=== PATIENT | female | born 1990 | race Caucasian/White ===

== ENCOUNTER 2016-04-25 18:04 | Outpatient (CLI) | payer BC ==
[2016-04-25 19:21] LABS: BLOOD, URINE NEGATIVE (NEGATIVE); COLOR,URINE YELLOW (YELLOW); LEUKOCYTE ESTERASE ,URINE TRACE (NEGATIVE); NITRITE,URINE NEGATIVE (NEGATIVE); UROBILINOGEN,URINE 0.2 EU/DL (NORMAL)
[2016-04-25 20:09] LABS: RBC,URINE NONE SEEN /HPF (0-3); WBC,URINE 0-1 /HPF (0-5)
[2016-04-25 20:10] LABS: BACTERIA,URINE TRACE (NEGATIVE)
== END 2016-04-25 20:15 | disposition home or self-care (01) ==
LOC: MC 18:04 → OBOBS 18:04
PROVIDERS: ATTEND Obstetrics & Gynecology
DX: O47.03 False labor before 37 completed weeks of gestation, third trimester (principal); Z3A.36 36 weeks gestation of pregnancy
CPT/HCPCS: 81001

== ENCOUNTER 2016-05-12 05:51 | Inpatient (IN) | payer BC ==
[~2016-05-12] VITALS: Ht 162.6 cm; Wt 76.3 kg
--- OUTSIDE RECORDS SUMMARY | 2016-05-12 05:58 | XMS REPORT | Referral Summary ---
Author Author [facility] Organization [facility] Address Unknown Phone Unavailable Care Team Providers Care Varnish Blender Name Role Phone No PCP, States Primary Care Physician [phone] Encounter Date(s): 01/14/15 - 01/14/15 [facility] [address] [place] [id number] Discharge Diagnosis: Strain of right tibialis anterior muscle Discharge Disposition: 01-Home or Self Care Attending Physician: Deni Smith MD Admitting Physician: Deni Smith MD Vital Signs Most recent to 1 oldest [Reference Range]: Temperature Tympanic 36.2 degC [36.6-38.1 degC] *LOW* (01/14/15 10:40 AM) Peripheral Pulse 72 bpm Rate [60-100 bpm] (01/14/15 10:40 AM) Blood Pressure 94/62 mmHg [90-140/60-90 mmHg] (01/14/15 10:40 AM) Problem List Condition Effective Dates Status Health Status Informant Tobacco Active patient user(Confirmed) Allergies, Adverse Reactions, Alerts Substance Reaction Severity Status Bactrim DS Vomiting Active Medications Abilify 5 mg oral tablet mg tabs, Oral, Daily, 0 Refill(s) Start Date: 01/14/15 Status: Ordered meloxicam 15 mg oral tablet 15 mg 1 tabs, Oral, Daily, # 30 tabs, 0 Refill(s), Pharmacy: [facility] # [id number], 1 tabs Oral Daily,x30 days Start Date: 01/14/15 Stop Date: 02/13/15 Status: Ordered Pristiq Oral, Daily, 0 Refill(s) Start Date: 01/14/15 Status: Ordered Results No data available for this section Immunizations No data available for this section Procedures No data available for this section Social History Social History Type Response Smoking Status Current every day smoker Assessment and Plan Extracted from: Title: Office Visit Note Author: Deni Smith MD Date: 01/14/15 Assessment/Plan Strain of right tibialis anterior muscle Plan: I am going to placeyou on meloxicam. I would recommend using ice for swelling to 3 times a day for 15- 20 minutes. I would recommend changing or boots this something that he applies less pressure to your leg. If you develop heartburn stop the meloxicam. Orders: meloxicam, 15 mg 1 tabs, Oral, Daily, # 30 tabs, 0 Refill(s), Pharmacy : [facility] #[id number], 1 tabs Oral Daily,x30 days
--- OUTSIDE RECORDS SUMMARY | 2016-05-12 05:58 | XMS REPORT | Continuity of Care Document ---
Author Author [facility] Organization [facility] Address Unknown Phone Unavailable Allergies Active Description Code Type Severity Reaction Onset Reported/Identified Relationship to Patient Clinical Status Yes Bactrim 5086 Drug Allergy Severe Nuasea/Vomiting 02/27/2014 Medications Problems Date Dx Coded Attending Type Code Diagnosis Diagnosed By 02/27/2014 D 620.2 OVARIAN CYST NEC/NOS 02/27/2014 A 625.9 FEM GENITAL SYMPTOMS NOS 09/07/2014 Anitha VU 008.8 VIRAL ENTERITIS NOS Procedures Code [place] [address] ROUTINE VENIPUNCTURE SARA ISABEL DO 02/27/2014 65842 X-RAY EXAM OF ABDOMEN SARA ISABEL DO 02/27/[address] ABD & PELVIS W/O CONTRAST SARA ISABEL DO W 02/27/2014 49712 COMPREHEN METABOLIC PANEL SARA ISABEL DO 02/27/2014 56077 URINALYSIS, AUTO W/SCOPE SARA ISABEL DO 02/27/2014 53340 URINE TEST SARA ISABEL DO W 02/27/2014 23566 ASSAY OF AMYLASE SARA ISABEL DO 02/27/2014 62031 ASSAY OF LIPASE SARA ISABEL DO 02/27/2014 80205 COMPLETE CBC W/AUTO DIFF WBC SARA ISABEL DO 02/27/2014 75403 THER/PROPH/DIAG INJ, SC/IM SARA ISABEL DO 02/27/2014 12675 EMERGENCY DEPT VISIT SARA ISABEL DO 02/27/2014 J1885 KETOROLAC TROMETHAMINE INJ DAVID MCLAUGHLIN 02/27/2014 05880 ROUTINE VENIPUNCTURE SARA ISABEL DO 09/07/2014 54293 COMPREHEN METABOLIC PANEL SARA ISABEL DO 09/07/2014 24728 ASSAY OF AMYLASE SARA ISABEL DO 09/07/2014 33747 ASSAY OF LIPASE SARA ISABEL DO 09/07/2014 93790 COMPLETE CBC W/AUTO DIFF WBC SARA ISABEL DO 09/07/2014 89477 HYDRATION IV INFUSION INIT SARA ISABEL DO 09/07/2014 55186 EMERGENCY DEPT VISIT SARA ISABEL DO 09/07/2014 J7030 NORMAL SALINE SOLUTION INFUS Anitha VU 09/07/2014 82134 ROUTINE VENIPUNCTURE SARA ISABEL DO 12/12/[address] ABD & PELV 1/> REGNS SARA ISABEL DO 12/12/2014 75792 US EXAM PELVIC COMPLETE SARA ISABEL DO 12/12/2014 89690 COMPREHEN METABOLIC PANEL SARA ISABEL DO 12/12/2014 46978 URINALYSIS AUTO W/SCOPE SARA ISABEL DO 12/12/2014 17959 URINE TEST SARA ISABEL DO 12/12/2014 14818 ASSAY OF AMYLASE SARA ISABEL DO 12/12/2014 18396 ASSAY OF LIPASE SARA ISABEL DO 12/12/2014 41395 COMPLETE CBC W/AUTO DIFF WBC SARA ISABEL DO 12/12/2014 Q9967 LOCM 300-399MG/ML IODINE,1ML Anitha VU 12/12/2014 Results Test Result Range Urinalysis - 02/27/14 14:47 Amorphous Crystals LARGE Squamous Epis 3-5 Bilirubin Negative Negative Blood Negative Negative Color Yellow Glucose Negative MG/DL Negative Ketone Negative MG/DL Negative Leukocytes Small Negative Nitrites Negative Negative pH 7.0 4.8-7.8 Urine Appearance SLCLOUDY Protein Negative MG/DL Negative SG 1.030 1.002-1.030 Urobilinogen 0.2 MG/DL 0-1 Bacteria MODERATE Mucus FEW Urine Other PLEASE CALL LAB FOR CULTURE Urine RBC 0-2 Urine WBC 3-5 Site VOID Urine - 02/27/14 14:47 Urine NEG COMPLETE BLOOD COUNT - 02/27/14 15:28 Baso # 0.02 K/ul 0.0-0.2 Baso % 0.2 % 0-2 Eos # 0.11 K/ul 0.0-0.7 Eos % 1.4 % 0-6 HCT 39.2 % 35-49 HGB 13.0 G/DL 11.5-16.0 Lymph # 2.24 K/ul 0.7-5.8 Lymph % 27.6 % 18-50 MCH 30.0 PG 25-35 MCHC 33.2 G/DL 31-37 MCV 90.3 FL 80-100 [place] # 0.47 K/ul 0.1-1.4 [place] % 5.8 % 2-12 MPV 10.6 FL 8.0-13.0 Platelet 211 10^3u 140-450 RBC 4.34 10^6u 4.0-5.4 RDW 13.4 % 12.5-15.5 Neut # 5.27 K/ul 1.8-8.1 Neut % 65.0 % 40-70 WBC 8.11 10^3u 4.75-11.75 Comprehensive Metabolic Panel - 02/27/14 15:43 Sodium 141 MMOLL 135-145 Potassium 3.8 MMOLL 3.5-5.1 Chloride 103 MMOLL 98-107 CO2 27.2 MMOLL 21.0-32.0 Anion GAP 10.8 MMOLL 3.0-25.0 Glucose 100 MG/DL 74-106 BUN 12 MG/DL 7-18 Creatinine 0.67 MG/DL 0.2-1.3 EGFR > 60 MLMIN > 60 Calcium 8.9 MG/DL 8.4-10.1 T. Protein 7.6 G/DL 6.4-8.2 Albumin 3.4 G/DL 3.4-5.0 AST 14 U/L 15-37 Alk Phos 86 U/L 43-119 ALT 25 U/L 12-78 T Bili 0.2 MG/DL 0.00-1.00 Amylase - 02/27/14 15:43 Amylase 57 U/L 25-115 Lipase - 02/27/14 15:43 Lipase 140 U/L 73-393 COMPLETE BLOOD COUNT - 09/07/14 10:27 Baso # 0.01 K/ul 0.0-0.2 Baso % 0.2 % 0-2 Eos # 0.18 K/ul 0.0-0.7 Eos % 2.9 % 0-6 HCT 41.6 % 35-49 HGB 14.2 G/DL 11.5-16.0 Lymph # 1.64 K/ul 0.7-5.8 Lymph % 26.0 % 18-50 MCH 31.2 PG 25-35 MCHC 34.1 G/DL 31-37 MCV 91.4 FL 80-100 [place] # 0.46 K/ul 0.1-1.4 [place] % 7.3 % 2-12 MPV 10.8 FL 8.0-13.0 Platelet 173 10^3u 140-450 RBC 4.55 10^6u 4.0-5.4 RDW 13.9 % 12.5-15.5 Neut # 4.02 K/ul 1.8-8.1 Neut % 63.6 % 40-70 WBC 6.31 10^3u 4.75-11.75 Amylase - 09/07/14 10:37 Amylase 51 U/L 25-115 Comprehensive Metabolic Panel - 09/07/14 10:37 Sodium 141 MMOLL 135-145 Potassium 3.9 MMOLL 3.5-5.1 Chloride 105 MMOLL 98-107 CO2 24.8 MMOLL 21.0-32.0 Anion GAP 11.2 MMOLL 3.0-25.0 Glucose 93 MG/DL 74-106 BUN 6 MG/DL 7-18 Creatinine 0.92 MG/DL 0.2-1.3 EGFR > 60 MLMIN > 60 Calcium 9.0 MG/DL 8.4-10.1 T. Protein 7.7 G/DL 6.4-8.2 Albumin 3.9 G/DL 3.4-5.0 AST 19 U/L 15-37 Alk Phos 100 U/L 43-119 ALT 38 U/L 12-78 T Bili 0.3 MG/DL 0.00-1.00 Lipase - 09/07/14 10:37 Lipase 150 U/L 73-393 COMPLETE BLOOD COUNT - 12/12/14 11:34 Baso # 0.02 K/ul 0.0-0.2 Baso % 0.2 % 0-2 Eos # 0.23 K/ul 0.0-0.7 Eos % 2.5 % 0-6 HCT 43.1 % 35-49 HGB 14.1 G/DL 11.5-16.0 Lymph # 2.20 K/ul 0.7-5.8 Lymph % 23.9 % 18-50 MCH 30.7 PG 25-35 MCHC 32.7 G/DL 31-37 MCV 93.9 FL 80-100 [place] # 0.51 K/ul 0.1-1.4 [place] % 5.5 % 2-12 MPV 10.1 FL 8.0-13.0 Platelet 259 10^3u 140-450 RBC 4.59 10^6u 4.0-5.4 RDW 13.8 % 12.5-15.5 Neut # 6.23 K/ul 1.8-8.1 Neut % 67.9 % 40-70 WBC 9.19 10^3u 4.75-11.75 Urine - 12/12/14 11:38 Urine NEG Urinalysis - 12/12/14 11:42 Amorphous Crystals LARGE Squamous Epis 1-3 Bilirubin Negative Negative Blood Negative Negative Color Yellow Glucose Negative MG/DL Negative Ketone Negative MG/DL Negative Leukocytes Negative Negative Nitrites Negative Negative pH 7.0 4.8-7.8 Urine Appearance SLCLOUDY Protein Negative MG/DL Negative SG 1.020 1.002-1.030 Urobilinogen 0.2 MG/DL 0-1 Bacteria SMALL Mucus SMALL Urine RBC 0-2 Urine WBC 0-3 Site VOID Comprehensive Metabolic Panel - 12/12/14 11:46 Sodium 140 MMOLL 135-145 Potassium 4.1 MMOLL 3.5-5.1 Chloride 103 MMOLL 98-107 CO2 29.1 MMOLL 21.0-32.0 Anion GAP 7.9 MMOLL 3.0-25.0 Glucose 90 MG/DL 74-106 BUN 10 MG/DL 7-18 Creatinine 0.71 MG/DL 0.2-1.3 EGFR > 60 MLMIN > 60 Calcium 8.9 MG/DL 8.4-10.1 T. Protein 8.1 G/DL 6.4-8.2 Albumin 3.8 G/DL 3.4-5.0 AST 20 U/L 15-37 Alk Phos 99 U/L 43-119 ALT 44 U/L 12-78 T Bili 0.4 MG/DL 0.00-1.00 Amylase - 12/12/14 11:46 Amylase 55 U/L 25-115 Lipase - 12/12/14 11:46 Lipase 141 U/L 73-393 Encounters ACCT No. Visit Date/Time Discharge Status Pt. Type Provider Facility Loc./Unit Complaint [id number] 12/12/2014 11:16:00 12/12/2014 11 :16:00 DIS Outpatient SARA ISABEL DO [facility] OTHER [id number] 09/07/2014 10:02:00 09/07/2014 11 :25:00 DIS Emergency Anitha VU [facility] ER [id number] 02/27/2014 14:47:00 Document Registration
--- OUTSIDE RECORDS SUMMARY | 2016-05-12 05:58 | XMS REPORT ---
Author Author [facility] Address [address] [place], [place] [address] Phone [phone] Summary purpose CCDA Sent to [facility] Chief Complaint and Reason for Visit No authorized Reason for Visit (Admitting Diagnosis) is available for this visit. Problem list No authorized problems tracked for continuity of care are available for this visit. Encounters No authorized problems tracked for encounter diagnoses are available for this visit. Medications No home medications recorded for this patient visit Allergies, adverse reactions, alerts Allergen Category Ingredient Status Reaction Severity Onset Bactrim Drug Bactrim Active Nuasea/Vomiting Severe Adolescence Bactrim Drug sulfamethoxazole Active Nuasea/Vomiting Severe Adolescence Bactrim Drug trimethoprim Active Nuasea/Vomiting Severe Adolescence Immunizations No immunizations recorded for this patient visit Relevant diagnostic tests and/or laboratory data RESULTS CBC - 5 part diff 99-01-154053:26:00 Result Normal Range Units WBC 9.19 4.75-11.75 x 103/uL Neut % 67.9 40-70 % Lymph % 23.9 18-50 % [place] % 5.5 2-12 % Eos % 2.5 0-6 % Baso % 0.2 0-2 % Neut # 6.23 1.8-8.1 K/uL Lymph # 2.20 0.7-5.8 K/uL [place] # 0.51 0.1-1.4 K/uL Eos # 0.23 0.0-0.7 K/uL Baso # 0.02 0.0-0.2 K/uL RBC 4.59 4.0-5.4 x 106/uL HGB 14.1 11.5-16.0 g/dl HCT 43.1 35-49 % MCV 93.9 80-100 FL MCH 30.7 25-35 pg MCHC 32.7 31-37 g/dl RDW 13.8 12.5-15.5 % Platelet 259 140-450 x 103/uL MPV 10.1 8.0-13.0 FL Urinalysis 11-95-208746:26:00 Result Normal Range Units Site Voided Color Yellow Urine Appearance Slightly cloudy SG 1.020 1.002-1.030 pH 7.0 4.8-7.8 Leukocytes Negative Negative Nitrites Negative Negative Protein Negative Negative mg/dl Glucose Negative Negative mg/dl Ketone Negative Negative mg/dl Urobilinogen 0.2 0-1 mg/dl Bilirubin Negative Negative Blood Negative Negative Urine RBC 0-2 Urine WBC 0-3 Bacteria SMALL Amorphous Crystals LARGE Squamous Epis 1-3 Mucus SMALL Urinalysis Group [id number]:26:00 Result Normal Range Units Site Voided Color Yellow Urine Appearance Slightly cloudy SG 1.020 1.002-1.030 pH 7.0 4.8-7.8 Leukocytes Negative Negative Nitrites Negative Negative Protein Negative Negative mg/dl Glucose Negative Negative mg/dl Ketone Negative Negative mg/dl Urobilinogen 0.2 0-1 mg/dl Bilirubin Negative Negative Blood Negative Negative Urine WBC 0-3 Urine RBC 0-2 Bacteria SMALL Amorphous Crystals LARGE Squamous Epis 1-3 Mucus SMALL Serology Group [id number]:26:00 Result Normal Range Units Urine Negative History of procedures Procedure Code Code Type Description Date Performed Performing Physician 47842 CPT-4 COMPREHEN METABOLIC PANEL 12-12-2014 SARA ISABEL 97494 CPT-4 ASSAY OF AMYLASE 12-12-2014 SARA ISABEL 88418 CPT-4 ASSAY OF LIPASE 12-12-2014 SARA ISABEL 50010 CPT-4 COMPLETE CBC W/AUTO DIFF WBC 12-12-2014 SARA ISABEL 31294 CPT-4 URINALYSIS AUTO W/SCOPE 12-12-2014 SARA ISABEL 71686 CPT-4 URINE TEST 12-12-2014 SARA ISABEL 25230 CPT-4 CT ABD & PELV 1/> REGNS 12-12-2014 SARA ISABEL 21442 CPT-4 US EXAM PELVIC COMPLETE 12-12-2014 SARA ISABEL Q9967 CPT-4 LOCM 300-399MG/ML IODINE,1ML 12-12-2014 Anitha ISLAS 56297 CPT-4 ROUTINE VENIPUNCTURE 12-12-2014 SARA ISABEL Functional status No functional or cognitive status observations are available for this visit. Vital signs No authorized vital signs are available for this visit. Social history No Social History or smoking status observations were recorded for this visit. ( Unknown if ever smoked.) Treatment Plan No treatment plan text is available for this visit. Hospital discharge instructions No discharge instruction text is available for this visit.
--- OUTSIDE RECORDS SUMMARY | 2016-05-12 05:58 | XMS REPORT ---
Author Author [facility] Address [address] [place] [address] Phone [phone] Summary purpose CCDA Sent to [facility] Chief Complaint and Reason for Visit No authorized Reason for Visit (Admitting Diagnosis) is available for this visit. Problem list No authorized problems tracked for continuity of care are available for this visit. Encounters No authorized problems tracked for encounter diagnoses are available for this visit. Medications Home Medications Medication Directions Started Status Source Ortho Tri-Cyclen (28) 0.18 mg(7)/0.215 mg(7)/0.25 mg(7)-35 mcg tablet 1 tablet oral -Daily Current Patient recall Allergies, adverse reactions, alerts Allergen Category Ingredient Status Reaction Severity Onset Bactrim Drug Bactrim Active Nuasea/Vomiting Severe Adolescence Bactrim Drug sulfamethoxazole Active Nuasea/Vomiting Severe Adolescence Bactrim Drug trimethoprim Active Nuasea/Vomiting Severe Adolescence Immunizations No immunizations recorded for this patient visit Relevant diagnostic tests and/or laboratory data RESULTS CBC - 5 part diff [id number]:18:00 Result Normal Range Units WBC 8.11 4.75-11.75 x 103/uL Neut % 65.0 40-70 % Lymph % 27.6 18-50 % [place] % 5.8 2-12 % Eos % 1.4 0-6 % Baso % 0.2 0-2 % Neut # 5.27 1.8-8.1 K/uL Lymph # 2.24 0.7-5.8 K/uL [place] # 0.47 0.1-1.4 K/uL Eos # 0.11 0.0-0.7 K/uL Baso # 0.02 0.0-0.2 K/uL RBC 4.34 4.0-5.4 x 106/uL HGB 13.0 11.5-16.0 g/dl HCT 39.2 35-49 % MCV 90.3 80-100 FL MCH 30.0 25-35 pg MCHC 33.2 31-37 g/dl RDW 13.4 12.5-15.5 % Platelet 211 140-450 x 103/uL MPV 10.6 8.0-13.0 FL Urinalysis [id number]:41:00 Result Normal Range Units Site Voided Color Yellow Urine Appearance Slightly cloudy SG 1.030 1.002-1.030 pH 7.0 4.8-7.8 Leukocytes AB Small Negative Nitrites Negative Negative Protein Negative Negative mg/dl Glucose Negative Negative mg/dl Ketone Negative Negative mg/dl Urobilinogen 0.2 0-1 mg/dl Bilirubin Negative Negative Blood Negative Negative Urine RBC 0-2 Urine WBC 3-5 Bacteria MODERATE Amorphous Crystals LARGE Squamous Epis 3-5 Mucus FEW Urine Other PLEASE CALL LAB FOR CULTURE Urinalysis Group [id number]:41:00 Result Normal Range Units Site Voided Color Yellow Urine Appearance Slightly cloudy SG 1.030 1.002-1.030 pH 7.0 4.8-7.8 Leukocytes AB Small Negative Nitrites Negative Negative Protein Negative Negative mg/dl Glucose Negative Negative mg/dl Ketone Negative Negative mg/dl Urobilinogen 0.2 0-1 mg/dl Bilirubin Negative Negative Blood Negative Negative Urine WBC 3-5 Urine RBC 0-2 Bacteria MODERATE Amorphous Crystals LARGE Squamous Epis 3-5 Mucus FEW Urine Other PLEASE CALL LAB FOR CULTURE Serology Group [id number]:42:00 Result Normal Range Units Urine Negative History of procedures Procedure Code Code Type Description Date Performed Performing Physician 85335 CPT-4 URINALYSIS AUTO W/SCOPE 02-27-2014 SARA ISABEL 56129 CPT-4 X-RAY EXAM OF ABDOMEN 02-27-2014 SARA ISABEL 74789 CPT-4 URINE TEST 02-27-2014 SARA ISABEL 81763 CPT-4 COMPLETE CBC W/AUTO DIFF WBC 02-27-2014 SARA ISABEL 97513 CPT-4 COMPREHEN METABOLIC PANEL 02-27-2014 SARA ISABEL 57185 CPT-4 ASSAY OF AMYLASE 02-27-2014 ASRA IASBEL 88635 CPT-4 ASSAY OF LIPASE 02-27-2014 SARA ISABEL 79223 CPT-4 CT ABD & PELVIS W/O CONTRAST 02-27-2014 SARA ISABEL J1885 CPT-4 KETOROLAC TROMETHAMINE INJ 02-27-2014 DAVID TREJO 86564 CPT-4 THER/PROPH/DIAG INJ SC/IM 02-27-2014 SARA ISABEL 71027 CPT-4 ROUTINE VENIPUNCTURE 02-27-2014 SARA ISABEL 88572 CPT-4 EMERGENCY DEPT VISIT 02-27-2014 SARA ISABEL Functional status Cognitive Status Finding Observation Time Level of Consciousne Alert :49 Oriented to Person Yes :[address] Yes :49 Oriented to Time Yes :49 Vital signs Type Value Date Respirations 20 :52 Pulse 72 :52 O2 Saturation 98% :52 Systolic Blood Press 113mm/HG :52 Diastolic Blood Pres 53mm/HG :52 Temperature (Fahr) 98.0Degrees :52 Height 64in :23 Weight 159.8LB :23 Social history Type Value Smoking Status CURRENT EVERY DAY SMOKER Treatment Plan No treatment plan text is available for this visit. Hospital discharge instructions No discharge instruction text is available for this visit.
--- OUTSIDE RECORDS SUMMARY | 2016-05-12 05:58 | XMS REPORT ---
Author Author [facility] Address [address] [place], [place] [address] Phone [phone] Summary purpose CCDA Sent to [facility] Chief Complaint and Reason for Visit Admit Diagnosis 1 VIRAL ENTERITIS NOS Problem list No authorized problems tracked for continuity of care are available for this visit. Encounters No authorized problems tracked for encounter diagnoses are available for this visit. Medications Home Medications Medication Directions Started Status Source Ortho Tri-Cyclen (28) 0.18 mg(7)/0.215 mg(7)/0.25 mg(7)-35 mcg tablet 1 tablet oral -Daily Discont Patient recall Pristiq 100 mg tablet,extended release 1 tablet oral -Daily Current Patient recall Allergies, adverse reactions, alerts Allergen Category Ingredient Status Reaction Severity Onset Bactrim Drug Bactrim Active Nuasea/Vomiting Severe Adolescence Bactrim Drug sulfamethoxazole Active Nuasea/Vomiting Severe Adolescence Bactrim Drug trimethoprim Active Nuasea/Vomiting Severe Adolescence Immunizations No immunizations recorded for this patient visit Relevant diagnostic tests and/or laboratory data RESULTS CBC - 5 part diff [id number]:14:00 Result Normal Range Units WBC 6.31 4.75-11.75 x 103/uL Neut % 63.6 40-70 % Lymph % 26.0 18-50 % [place] % 7.3 2-12 % Eos % 2.9 0-6 % Baso % 0.2 0-2 % Neut # 4.02 1.8-8.1 K/uL Lymph # 1.64 0.7-5.8 K/uL [place] # 0.46 0.1-1.4 K/uL Eos # 0.18 0.0-0.7 K/uL Baso # 0.01 0.0-0.2 K/uL RBC 4.55 4.0-5.4 x 106/uL HGB 14.2 11.5-16.0 g/dl HCT 41.6 35-49 % MCV 91.4 80-100 FL MCH 31.2 25-35 pg MCHC 34.1 31-37 g/dl RDW 13.9 12.5-15.5 % Platelet 173 140-450 x 103/uL MPV 10.8 8.0-13.0 FL History of procedures Procedure Code Code Type Description Date Performed Performing Physician 74440 CPT-4 COMPLETE CBC W/AUTO DIFF WBC 09-07-2014 SARA ISABEL 88830 CPT-4 ASSAY OF AMYLASE 09-07-2014 SARA ISABEL 09865 CPT-4 COMPREHEN METABOLIC PANEL 09-07-2014 SARA ISABEL 24134 CPT-4 ASSAY OF LIPASE 09-07-2014 SARA ISABEL 19217 CPT-4 EMERGENCY DEPT VISIT 09-07-2014 SARA SIABEL J7030 CPT-4 NORMAL SALINE SOLUTION INFUS 09-07-2014 C JEFFRY ISLAS 64741 CPT-4 ROUTINE VENIPUNCTURE 09-07-2014 SARA ISABEL 73345 CPT-4 HYDRATION IV INFUSION INIT 09-07-2014 SARA ISABEL Functional status Cognitive Status Finding Observation Time Level of Consciousne Alert 20-70-326244:19 Oriented to Person Yes 04-05-063396:[address] Yes 67-07-061190:19 Oriented to Time Yes 62-49-733998:19 Vital signs Type Value Date Respirations 20 49-26-088083:25 Pulse 68 33-41-317117:25 O2 Saturation 68% 92-41-377275:25 Systolic Blood Press 106mm/HG 64-57-931239:25 Diastolic Blood Pres 68mm/HG 55-04-985499:25 Temperature (Fahr) 97.2Degrees 05-16-983501:25 Height 64in 84-87-899790:09 Weight 148.5LB 98-82-357711:09 Social history Type Value Smoking Status CURRENT LIGHT TOBACCO SMOKER Treatment Plan No treatment plan text is available for this visit. Hospital discharge instructions Diagnosis viral gastroenteritis Diet bland-BRAT (banana, rice, applesauce, toast) Activity Level rest Med Dispensed by [facility] prescription to take to [facility] Follow up with NEEDED Other Instructions get prescription filled. drink plenty of fluids, follow up in not improved
--- OUTSIDE RECORDS SUMMARY | 2016-05-12 05:58 | XMS REPORT | Referral Summary ---
Author Author [facility] Organization [facility] Address Unknown Phone Unavailable Care Team Providers Care Tv News Director Name Role Phone No PCP, States Primary Care Physician [phone] Encounter Date(s): 03/23/15 - 03/23/15 [facility], [address] [place] [id number] Discharge Disposition: 01-Home or Self Care Attending Physician: Porfirio Dyer MD Vital Signs Most recent to 1 oldest [Reference Range]: Blood Pressure 110/60 mmHg [90-140/60-90 mmHg] (03/23/15 4:35 PM) Problem List Condition Effective Dates Status Health Status Informant Tobacco Active patient user(Confirmed) Allergies, Adverse Reactions, Alerts Substance Reaction Severity Status Bactrim DS Vomiting Active Medications Abilify 5 mg oral tablet mg tabs, Oral, Daily, 0 Refill(s) Start Date: 01/14/15 Status: Ordered predniSONE 20 mg oral tablet 20 mg 1 tabs, Oral, Daily, X 5 days, # 5 tabs, 0 Refill(s), Pharmacy: [facility] #[id number], 1 tabs Oral Daily,x5 days Start Date: 03/23/15 Stop Date: 03/28/15 Status: Ordered Pristiq Oral, Daily, 0 Refill(s) Start Date: 01/14/15 Status: Ordered promethazine-codeine 6.25 mg-10 mg/5 mL oral syrup 5 mL, Oral, q4hr, as needed for cough, # 120 mL, 0 Refill(s) Start Date: 03/23/15 Stop Date: 04/06/15 Status: Ordered Results No data available for this section Immunizations No data available for this section Procedures No data available for this section Social History Social History Type Response Smoking Status Current every day smoker Assessment and Plan Extracted from: Title: Ambulatory Patient Education Author: Porfirio Dyer MD Date: Family Medicine Pharyngitis Pharyngitis is redness, pain, and swelling (inflammation) of your pharynx. CAUSES Pharyngitis is usually caused by infection. Most of the time, these infections are from viruses (viral) and are part of a cold. However, sometimes pharyngitis is caused by bacteria (bacterial). Pharyngitis can also be caused by allergies. Viral pharyngitis may be spread from person to person by coughing, sneezing, and personal items or utensils (cups, forks, spoons, toothbrushes). Bacterial pharyngitis may be spread from person to person by more intimate contact, such as kissing. SIGNS AND SYMPTOMS Symptoms of pharyngitis include: Sore throat. Tiredness (fatigue). Low-grade fever. Headache. Joint pain and muscle aches. Skin rashes. Swollen lymph nodes. Plaque-like film on throat or tonsils (often seen with bacterial pharyngitis). DIAGNOSIS Your health care provider will ask you questions about your illness and your symptoms. Your medical history, along with a physical exam, is often all that is needed to diagnose pharyngitis. Sometimes, a rapid strep test is done. Other lab tests may also be done, depending on the suspected cause. TREATMENT Viral pharyngitis will usually get better in 34 days without the use of medicine. Bacterial pharyngitis is treated with medicines that kill germs ( antibiotics). HOME CARE INSTRUCTIONS Drink enough water and fluids to keep your urine clear or pale yellow. Only take [id number] or prescription medicines as directed by your health care provider: If you are prescribed antibiotics, make sure you finish them even if you start to feel better. Do not take aspirin. Get lots of rest. Gargle with 8 oz of salt water ( tsp of salt per 1 qt of water) as often as every 12 hours to soothe your throat. Throat lozenges (if you are not at risk for choking) or sprays may be used to soothe your throat. SEEK MEDICAL CARE IF: You have large, tender lumps in your neck. You have a rash. You cough up green, yellow-brown, or bloody spit. SEEK IMMEDIATE MEDICAL CARE IF: Your neck becomes stiff. You drool or are unable to swallow liquids. You vomit or are unable to keep medicines or liquids down. You have severe pain that does not go away with the use of recommended medicines. You have trouble breathing (not caused by a stuffy nose). MAKE SURE YOU: Understand these instructions. Will watch your condition. Will get help right away if you are not doing well or get worse. This information is not intended to replace advice given to you by your health care provider. Make sure you discuss any questions you have with your health care provider. Document Released: 01/23/2006 Document Revised: 11/13/2013 Document Reviewed: [facility] Patient Information 2015 [employer]. No follow up information was provided. Extracted from: Title: Office Visit Note Author: Porfirio Dyer MD Date: 03/23/15 Assessment/Plan Acute URI Zpack and prednisone 20mg po daily for five days was given. Cough Phen w/cod for cough, may cause sedation. RTW note given.
--- OUTSIDE RECORDS SUMMARY | 2016-05-12 05:58 | XMS REPORT | CCD ---
Author Author JINA TEIXEIRA Organization Unknown Address [address] [place] [id number] Care Team Providers Care Tenterer Name Role Phone Tori CARDOSO Attending Physician [phone] Vital Signs Vital Sign Value Unit Weight Measured 152.6 lbs Weight Measured 150.6 lbs Height 54 in Height 54 in BMI (Body Mass Index) 36.31 kg/m^2 BMI (Body Mass Index) 36.31 kg/m^2 BSA (Body Surface Area) 1.62 m^2 BSA (Body Surface Area) 1.61 m^2 BP Systolic 113 mmHg BP Diastolic 50 mmHg BP Systolic 110 mmHg BP Diastolic 63 mmHg BP Systolic 104 mmHg BP Diastolic 59 mmHg BP Systolic 115 mmHg BP Diastolic 57 mmHg BP Systolic 91 mmHg BP Diastolic 54 mmHg BP Systolic 93 mmHg BP Diastolic 58 mmHg BP Systolic 104 mmHg BP Diastolic 61 mmHg BP Systolic 96 mmHg BP Diastolic 56 mmHg BP Systolic 103 mmHg BP Diastolic 56 mmHg BP Systolic 92 mmHg BP Diastolic 48 mmHg BP Systolic 118 mmHg BP Diastolic 64 mmHg BP Systolic 122 mmHg BP Diastolic 63 mmHg BP Systolic 108 mmHg BP Diastolic 62 mmHg BP Systolic 115 mmHg BP Diastolic 67 mmHg BP Systolic 104 mmHg BP Diastolic 71 mmHg Respiratory Rate 18 bpm Respiratory Rate 18 bpm Respiratory Rate 18 bpm Respiratory Rate 18 bpm Respiratory Rate 18 bpm Respiratory Rate 18 bpm Respiratory Rate 18 bpm Respiratory Rate 18 bpm Respiratory Rate 16 bpm Respiratory Rate 18 bpm Respiratory Rate 20 bpm Respiratory Rate 18 bpm Heart Rate 83 bpm Heart Rate 74 bpm Heart Rate 75 bpm Heart Rate 76 bpm Heart Rate 60 bpm Heart Rate 75 bpm Heart Rate 73 bpm Heart Rate 75 bpm Heart Rate 81 bpm Heart Rate 74 bpm Heart Rate 69 bpm Heart Rate 66 bpm Heart Rate 70 bpm Heart Rate 63 bpm Heart Rate 64 bpm Body Temperature 97.9 degrees Body Temperature 97.9 degrees Body Temperature 98.7 degrees Body Temperature 97.4 degrees Body Temperature 97 degrees Body Temperature 97.4 degrees Allergies Allergy Code Allergy Type Reaction Status No Known Drug Allergies 0 No known drug allergies Active Procedures Unknown. History of Immunizations Immunization Code Date Tdap 115 01/25/2013 Problems Unknown. Results H&H (HEMOGLOBIN & HEMATOCRIT) Test Name Code Test Result Test Units Test Date/ Time HEMOGLOBIN 718-7 12.0000 g/dl 06/03/2013 06:45 HEMATOCRIT 4544-3 36.5000 % 06/03/2013 06:45 TYPE AND SCREEN Test Name Code Test Result Test Units Test Date/ Time ABO TYPE O N/A 06/02/2013 00:30 RH TYPE POSITIVE N/A 06/02/2013 00:30 AB SCREEN NEGATIVE N/A 06/02/2013 00:30 CBC WITH DIFFERENTIAL Test Name Code Test Result Test Units Test Date/ Time WBC 33879-8 15.7000 th/ul 06/02/2013 00:30 NEUTROPHILS 770-8 80.0000 % 06/02/2013 00:30 LYMPHOCYTES 736-9 14.2000 % 06/02/2013 00:30 MONOCYTES 5905-5 5.0000 % 06/02/2013 00:30 EOSINOPHILS 713-8 0.6000 % 06/02/2013 00:30 BASOPHILS 706-2 0.2000 % 06/02/2013 00:30 RBC 789-8 4.5400 mil/ul 06/02/2013 00:30 HEMOGLOBIN 718-7 13.8000 g/dl 06/02/2013 00:30 HEMATOCRIT 4544-3 41.4000 % 06/02/2013 00:30 MCV 787-2 91.0000 fL 06/02/2013 00:30 MCH 785-6 30.3000 pg 06/02/2013 00:30 MCHC 786-4 33.2000 g/dl 06/02/2013 00:30 RDW 788-0 14.2000 % 06/02/2013 00:30 NEUTROPHILS 751-8 12.6000 th/ul 06/02/2013 00:30 LYMPHOCYTES 731-0 2.2000 th/ul 06/02/2013 00:30 MONOCYTES 742-7 0.8000 th/ul 06/02/2013 00:30 EOSINOPHILS 711-2 0.1000 th/ul 06/02/2013 00:30 BASOPHILS 704-7 0.0000 th/ul 06/02/2013 00:[address] 777-3 134.0000 th/ul 06/02/2013 00:30 BANDS MANUAL 0.0000 % 06/02/2013 00:30 NEUT MANUAL 75.0000 % 06/02/2013 00:30 LYMS MANUAL 20.0000 % 06/02/2013 00:30 MONOS MANUAL 5.0000 % 06/02/2013 00:30 EOS MANUAL 0.0000 % 06/02/2013 00:30 BASO MANUAL 0.0000 % 06/02/2013 00:30 METAS MANUAL 0.0000 % 06/02/2013 00:30 MYELOS MANUAL 0.0000 % 06/02/2013 00:30 BLASTS MANUAL 0.0000 % 06/02/2013 00:30 ATYP LYMPHS 0.0000 % 06/02/2013 00:30 PROLYMPH MANUAL 0.0000 06/02/2013 00:30 TOTAL DIFF CELLS 100.0000 06/02/2013 00:30 PLATELET EST DECREASED N/A 06/02/2013 00:30 RBC MORPH ABNORMAL N/A 06/02/2013 00:30 ANISOCYTOSIS 1+ N/A 06/02/2013 00:30 Medications Medication Code Dose Units Frequency Route Modification Start Date/Time Stop Date/Time SALINE FLUSH 5 ML SYRINGE 85589759880 3 ML BID IVP 06/02/2013 00:22 LR 1000 ML 148908 CONT IV LVP 06/02/2013 00:22 ~~ LR 1000 ML 927703 3218 ML MORPHINE 5 MG/1ML VIAL 316361 2 MG PRN Q1H IVP 06/02/2013 00:22 06/07/2013 00:22 MORPHINE 5 MG/1ML VIAL 687929 2.5 MG PRN Q1H IVP 06/02/2013 00:23 06/07/2013 00:23 MORPHINE 5 MG/1ML VIAL 571768 3 MG PRN Q1H IVP 06/02/2013 00:23 06/07/2013 00:23 MORPHINE 5 MG/1ML VIAL 704611 4 MG PRN Q1H IVP 06/02/2013 00:23 06/07/2013 00:23 MORPHINE 5 MG/1ML VIAL 050270 5 MG PRN Q1H IVP 06/02/2013 00:23 06/07/2013 00:23 WITCH RAVI(TUCKS)PADS 100'S 167506 1 EA PRN TOPICAL 06/02/2013 05:31 BENZOCAINE(DERMOPLAST) SPRAY 2OZ 395089 2 OZ PRN TOPICAL 06/02/2013 05:31 DOCUSATE SODIUM(COLACE) 100 MG CAP 3894752 100 MG BID PO 06/02/2013 05:31 HYDROCODONE/APAP 5/325 (NORCO 5)TABLET 526301 1 TAB PRN Q4H PO 06/02/2013 05:31 HYDROCODONE/APAP 5/325 (NORCO 5)TABLET 095863 2 TAB PRN Q4H PO 06/02/2013 05:31 IBUPROFEN(MOTRIN) 600 MG TAB 581192 600 MG PRN Q6H PO 06/02/2013 05:32 ZOLPIDEM(AMBIEN) 10 MG TAB 350493 10 MG PRN QHS PO 06/02/2013 05:32 06/12/2013 05:32 Hemorrhoidal Hygiene 50% Topical application Pad 871319 1 EA NEEDED PRN TOPICAL APPLICATION 06/03/2013 08 :17 Dermoplast 20%-0.5% Topical application [place] 401359 2 OZ NEEDED PRN TOPICAL APPLICATION 06/03/2013 08: 17 Docusate Sodium 100MG Oral Capsule, Liquid Filled 6509996 100 MILLIGRAMS TWO TIMES PER DAY PO 06/03/2013 08 :17 APAP/Hydrocodone Bitartrate 325MG-5MG Oral Tablet 726932 2 TABLET NEEDED Q4 HOURS PO 06/03/2013 08:17 Ibuprofen 600MG Oral Tablet 525435 600 MILLIGRAMS NEEDED Q6 HOURS PO 06/03/2013 08:17 Medications Administered Medication Dose Units Frequency Route Date/ Time of Last Dose DOCUSATE SODIUM(COLACE) 100 MG CAP 100 MG BID PO 06/03/2013 07:10 HYDROCODONE/APAP 5/325 (NORCO 5)TABLET 1 TAB PRN Q4H PO 06/02/2013 14:59 HYDROCODONE/APAP 5/325 (NORCO 5)TABLET 2 TAB PRN Q4H PO 06/03/2013 03:25 IBUPROFEN(MOTRIN) 600 MG TAB 600 MG PRN Q6H PO 06/03/2013 07:10 Encounters Encounter Diagnosis Diagnosis Code Start Date COMP LAB DELIV NEC-DELIV 37893 06/02/2013 Social History Smoking Status Code Start Date End Date Never smoker [id number] Patient Decision Aids Patient Decision Aid Breast Care for the Non-breast Feeding Woman Instructions You were admitted to [facility] on 06/02/2013 with a principle diagnosis of COMP LAB DELIV NEC-DELIV. You had the following procedures done: MANUAL ASSIST DELIV NEC VACUUM EXTRACT DEL NEC ARTIF RUPT MEMBRANES NEC You were discharged from [facility] on 06/03/2013. Should you have any questions prior to discharge, please contact a member of your healthcare team. If you have left the hospital and have any questions, please contact your primary care physician. Discharge Notes: Discharge teaching given, patient voices understanding. Accompanied to private vehicle by staff, with via wheelchair. infant secured in carseat, belongings sent with patient. Accompanied ambulatory pt with . Chief Complaint and Reason For Visit Unknown. Function Status Unknown. Plan of Care Unknown. Referral/Transition of Care Unknown.
--- OUTSIDE RECORDS SUMMARY | 2016-05-12 05:58 | XMS REPORT ---
Author Author [facility]UAN [facility] Address [address] [place] [place] [id number] Phone [phone] Summary purpose CCDA Sent to [facility] Chief Complaint and Reason for Visit [...] data RESULTS CBC - 5 part diff [id number]:00 Result Normal Range Units WBC 8.11 4.75-11.75 x 103/uL Neut % 65.0 40-70 % Lymph % 27.6 18-50 % Chambers % 5.8 2-12 % Eos % 1.4 0-6 % Baso % 0.2 0-2 % Neut # 5.27 1.8-8.1 K/uL Lymph # 2.24 0.7-5.8 K/uL Chambers # 0.47 0.1-1.4 K/uL Eos # 0.11 0.0-0.7 K/uL Baso # 0.02 0.0-0.2 K/uL RBC 4.34 4.0-5.4 x 106/uL HGB 13.0 11.5-16.0 g/dl HCT 39.2 35-49 % MCV 90.3 80-100 FL MCH 30.0 25-35 pg MCHC 33.2 31-37 g/dl RDW 13.4 12.5-15.5 % Platelet 211 140-450 x 103/uL MPV 10.6 8.0-13.0 FL Urinalysis :41:00 Result Normal Range Units Site Voided Color [...] PLEASE CALL LAB FOR CULTURE Urinalysis Group :41:00 Result Normal Range Units Site Voided Color [...] PLEASE CALL LAB FOR CULTURE Serology Group :42:00 Result Normal Range Units Urine Negative History of procedures No procedures recorded for this patient visit. Functional status Cognitive Status Finding Observation Time [...]
--- OUTSIDE RECORDS SUMMARY | 2016-05-12 05:58 | XMS REPORT ---
Author Author [facility]CA [facility] Address Unknown Phone Unavailable Care Team Providers Care [employer] Principal Name Role Phone Dr. ALVIN CARDOSO Primary Care Physician Unavailable Allergies Allergy Description Allergy Type No Known Drug Allergies Propensity to adverse reactions Procedures Procedure Type Procedure Description Date Physicians No codified procedures found for this patient. Results No Procedures Performed Observation Test Name Observation Test Result Observation Test Units Observation Test Date Observation Test Time No result observations. History of Immunizations Immunization Date no immunization entries Plan of Care Item Text No plan of care items. Procedure Date/Time/Initials Critical? Status No plan of care procedures. Medication List Medication Dose Units Frequency Start Date/Time Status none Problem List Problem Entered Date Resolved Date No known problems
[2016-05-12] MEDS ORDERED: CALCIUM CARBONATE 500mg Chewable TAB PO PRN ×2 (06:00→14:45)
[2016-05-12] MEDS ORDERED: MAG-AL + SIM LIQUID 30 ML UDC PO PRN ×2 (06:00→14:45)
[2016-05-12] MEDS ORDERED: ACETAMINOPHEN 500 MG TABLET PO PRN ×2 (06:00→14:45)
[2016-05-12] MEDS ORDERED: OXYTOCIN 30 UNIT in D5LR 500 ML PRN (06:00)
[2016-05-12] MEDS ORDERED: LIDOCAINE 1% (10mg/ml) 2ml SDV ID PRN (06:00)
[2016-05-12] MEDS: LR 1,000 ML IV PRN ×3 (06:37→14:00)
[2016-05-12 06:49] LABS: HCT - HEMATOCRIT 40.7 % (36-46); HGB - HEMOGLOBIN 13.5 GM/DL (12-16); MEAN CORPUSCULAR HGB 30.8 UUG (26-34); MEAN CORPUSCULAR HGB CONC(MCHC 33.2 GM/DL (31-37); MEAN CORPUSCULAR VOLUME 92.9 UM3 (80-100); MEAN PLATELET VOLUME 11.3 UM3 (9.4-12.4); RED BLOOD COUNT 4.38 M/MM3 (4.00-5.20); WBC - WHITE BLOOD COUNT 13.3 T/MM3 (4.5-11.0)
[2016-05-12] MEDS ORDERED: D5LR 1,000 ML IV PRN (07:00)
[2016-05-12 07:05] VITALS: BP 100/62; PULSE 85; RESP 16; TEMP 98; O2SAT 99
[2016-05-12] MEDS ORDERED: PREN1TAB73 PO (07:21)
--- NOTE | 2016-05-12 08:26 | ANESOB ---
Epidural/ Date/Time DATE: 05/12/16 TIME: 08:23 Preop Diagnosis , induction Procedure: Labor Epidural Plan: Epidural Height: 5 ' 4.00 " Weight: 76.300 kg BMI: kg/m2 Blood Pressure: 106/65 Heart Rate: 83 Respiratory Rate: 20 NPO since: 1830 P:2 Heart Rate: 137 Medications & Allergies Inpatient Medications Current Medications Medications (Trade) Dose Ordered Sig/Jillian Start Time Stop Time Status Last Admin Dose Admin Lidocaine HCl 0.2 mg 0.2 mg PRN PRN 05/12/16 06:00 Lactated Ringer's (Lactated Ringers) 1,000 ml @ 0 mls/hr Q0M PRN 05/12/16 05:56 05/12/16 06:37 0 MLS/HR Acetaminophen (Tylenol Extra Strength) 1-2 TABS = 500-1,000 MG Q4H PRN 05/12/16 06:00 Al Hydroxide/Mg Hydroxide (Maalox) 30 ml Q4H PRN 05/12/16 06:00 Calcium Carbonate 1-2 TABS Q2H PRN 05/12/16 06:00 Dextrose/Lactated Ringer's 1,000 ml @ 0 mls/hr Q0M PRN 05/12/16 07:00 05/12/16 06:50 0 MLS/HR Oxytocin/Dextrose/ Lactated Ringer's (Pitocin/D5lr) 503 ml @ 0 mls/hr Q0M PRN 05/12/16 06:00 05/12/16 06:50 0 MLS/HR Pnv95/Ferrous Fumarate/FA ( Tablet) 1 Each Tablet, 1 TAB PO DAILY, ( Reported) Last Taken: on 05/11/161999 Coded Allergies: sulfamethoxazole (Verified Adverse Reaction, Mild, NAUSEA, VOMITING, ) trimethoprim (Verified Adverse Reaction, Mild, NAUSEA, VOMITING, 09/24/15) Medical/Surgical History Anesthesia PMH: Reports: Back Problems (low back pain), Headaches (history of migraines) Smoking Status: Current every day smoker # of Packs/Tins per Day: 0.5 # of Years: 4 Does patient use chewing tobac: No Second Hand Exposure: No Substance Use Type: does not use Alcohol Intake: none Anesthesia Adverse Reactions: FOUND none Family Hx of Anesthesia Advers: none Hx of Motion Sickness: No Complications During : No Pertinent Findings Laboratory Tests 05/12/16 06:28 Physical Exam Respiratory: Bilat breath sounds equal, Lungs clear Cardiovascular: Regular rate, rhythm Airway Assessment Mallampati Score: II TMD: 3 Fingerbreadths Neck Extension: Fair Overall Assessment: No Airway Concerns ASA: 2 Discussion Discussed risks/options/alternatives of anesthesia. Patient consents. Nursing pain assessment noted. Present for Discussion: Present: Spouse Attestation Statement Prior to the delivery of any anesthetic medication, I examined the patient, developed the plan, obtained the patient's consent and discussed the risk and benefits of the procedure with the patient/guardian. If the note happens to be signed after anesthesia start time, it is only due to providing efficient care of the patient and documenting at a time when the computer is available. TEO JIMENEZ CRNA May 12, 2016 08:26
[2016-05-12] MEDS ORDERED: ROPIVACAINE 1% 200 MG, SUFENTANIL 50 MCG in NORMAL SALINE 80 ML EPI PRN (12:45)
[2016-05-12] MEDS ORDERED: ONDANSETRON 4mg/2ml INJECTION IV PRN (12:45)
[2016-05-12] MEDS ORDERED: DiphenhydrAMINE 50 MG/ML INJECTION IV PRN (12:45)
[2016-05-12] MEDS ORDERED: NALOXONE 0.4mg/ml INJECTION IV PRN (12:45)
[2016-05-12] MEDS ORDERED: LIDOCAINE 2% (20mg/ml) 5ml PF SDV ONE (12:52)
[2016-05-12] MEDS ORDERED: PROPOFOL 500mg 50 ML IV ONE (12:52)
[2016-05-12] MEDS ORDERED: OXYTOCIN 30 UNIT in D5W 500 ML IV ONE (14:39)
[2016-05-12] MEDS ORDERED: MILK OF MAGNESIA 30 ML SUSP PO PRN (14:45)
[2016-05-12] MEDS ORDERED: HYDROCORTISONE 2.5% CREAM 30 GM RECTALLY PRN (14:45)
[2016-05-12] MEDS ORDERED: PHENYLEPHRINE RECTAL SUPPOSITORY RECTALLY PRN (14:45)
[2016-05-12] MEDS ORDERED: DiphenhydrAMINE 25 MG CAPSULE PO PRN (14:45)
[2016-05-12] MEDS: IBUPROFEN 800 MG TABLET PO PRN (16:15)
[2016-05-12] MEDS ORDERED: OXYTOCIN 30 UNIT in D5LR 500 ML IV SCH (17:00)
--- NOTE | 2016-05-12 17:35 | ANESPO ---
Post-Op Note Date 05/12/16 Time: 17:33 Status Pt Participated in Evaluation: Pt participated in person Vital Signs Date Time Temp Pulse Resp B/P Pulse Ox O2 Delivery O2 Flow Rate FiO2 05/12/16 07:05 98.0 85 16 100/62 99 Room Air Respiratory Function: Airway patent, Regular respirations Cardiovascular Function: Regular pulse Mental Status: Alert/oriented Pain Level Intensity: 0 Hydration: Taking po fluids Complications during Recovery None apparent Follow-Up Instructions Instructions Per Surgeon TEO JIMENEZ CRNA May 12, 2016 17:34
--- NOTE | 2016-05-12 18:07 | LDNFPDOC ---
Delivery Note Date of Delivery 05/12/16 Diagnosis: : 4 Para: 2 Rubella: Immune GBS Status: Negative Weeks: 39 Days: 1 Sex and Viability: Viable Male APGARS: [place] Name: Bryan Dasilva [place] Weight: 3760 grams Estimated Blood Loss: 500 cc Brief Description Patient is a 25 year old, 4, para 2 who presented to labor and delivery at 39 weeks 1 day for scheduled induction of labor due to logistics. Upon admission, cervical exam revealed dilation to 2 centimeters which had been unchanged from my exam in the office for the last 2 weeks. Estimated weight by Deonte's maneuver was approximately 8 lbs and her pelvis was previously cleared for trial of labor as she had two prior vaginal deliveries of 7 lb infants, though her last delivery was operative with vacuum assistance. Pitocin was started and increased per protocol until an adequate contraction pattern was achieved. Patient dilated to 4 centimeters 4 hours later and artificial rupture of membranes was performed to augment labor. She then rapidly progressed to complete dilation within 2.5 hours. No other complication noted at this point. heart rate at time of pushing was category II for early decelerations with quick recovery to baseline, variability remained moderate throughout labor. Patient remained in the labor room, was prepped and draped in the usual sterile fashion. Patient pushed for approximately 15 minutes with excellent effort. The 's head then delivered spontaneously, however, there was great difficulty getting the anterior shoulder to deliver with careful downward traction. Shoulder dystocia was called within 6 seconds - Pediatrics was called emergently to the room as two nursing staff applied suprapubic pressure. We also proceeded with the Ford maneuver to aid with expedited delivery with 2 extra staff members. As the anterior shoulder was still not reducible after 15 seconds since delivery of the head, decision was made to proceed with delivery of the posterior shoulder first which was achieved shortly thereafter. Once this was done, the anterior shoulder easily delivered as did the remainder of the 's body. Total time on the perineum was estimated to be 30 seconds. The cord was clamped and cut without delay and the was taken from mother's abdomen to the warmer for immediate evaluation. Mouth and nares were suctioned. The infant was noted to be moving all extremities without difficulty and had a good vigorous cry after one minute of delivery. The placenta spontaneously delivered without difficulty after 5 minutes. The perineum appeared intact. A vaginal sweep was then performed. Hemostasis was noted. No atony. Dr. Rangel (Pediatrics) examined the and shortly after delivery and there was no evidence of broken clavicle or brachial plexus injury. There was slight head bruising but no other abnormal findings. The infant was then placed on the patient's abdomen for [id number]. Infant and mother are doing well at this time. I discussed the events including the shoulder dystocia with patient and her as well as the potential implications. They voiced understanding and did not have any further questions at this time. ROBERT WILLIS MD May 12, 2016 14:44
[2016-05-12 18:45] VITALS: BP 112/71; PULSE 68; RESP 16; TEMP 97.8; O2SAT 98
[2016-05-12] MEDS: HYDROCODONE/APAP 5 mg/325 mg TABLET PO PRN (21:04)
[2016-05-12 21:10] VITALS: BP 109/67; PULSE 77; RESP 16; TEMP 97.5; O2SAT 97
--- NOTE | 2016-05-13 01:33 | NUR ---
Shift summary: VSS. Pt. is now up ad eliazar and performing self cares. Fundus firm, one below umbilicus. Small to moderate bleeding noted. Pt. received second bag of pitocin during recovery period. Pt. is now IV saline locked. Pt. is voiding and tolerating regular diet and fluids. Pain controlled with Ibuprofen 800 mg and Allen 5/325 mg. BP's slightly low during early recovery period. Dr. Hernandez notified and BP's returned to normal toward end of recovery after small LR bolus. Dale is supportive and at bedside. Pt. has had lots of visitors this shift and desires rest. Pt. sleeping. Infant in nursery since around 2200 by parents request. Parents attentive to infant needs.
[2016-05-13] MEDS: IBUPROFEN 800 MG TABLET PO PRN ×2 (05:04→15:16)
[2016-05-13 05:25] VITALS: BP 108/65; PULSE 76; RESP 20; TEMP 98.1; O2SAT 98
[2016-05-13 05:28] VITALS: PULSE 76; RESP 20
--- NOTE | 2016-05-13 05:31 | NUR ---
INITIAL ASSESSMENT VSS. PHYSICAL ASSESSMENT WNL. IBUPROFEN 800MG 1 TAB PO FOR LEVEL 2-3 ABDOMINAL CRAMPING PAIN. IV SITE WITHOUT S/S OF COMPLICATION.
[2016-05-13 05:37] LABS: HCT - HEMATOCRIT 34.5 % (36-46); HGB - HEMOGLOBIN 11.1 GM/DL (12-16); MEAN CORPUSCULAR HGB 30.4 UUG (26-34); MEAN CORPUSCULAR HGB CONC(MCHC 32.2 GM/DL (31-37); MEAN CORPUSCULAR VOLUME 94.5 UM3 (80-100); MEAN PLATELET VOLUME 11.9 UM3 (9.4-12.4); RED BLOOD COUNT 3.65 M/MM3 (4.00-5.20); WBC - WHITE BLOOD COUNT 14.4 T/MM3 (4.5-11.0)
--- NOTE | 2016-05-13 08:37 | PNPDOC ---
Progress Note PPD1 Weeks: 39 Days: 1 Rubella: Immune GBS: Negative Blood Type:O pos Subjective 05/13/16 Lochia: Minimal Pain: Controlled Voiding: Voiding Nausea and Vomiting: No Nausea/Vomiting Objective Vital Signs Date Time Temp Pulse Resp B/P Pulse Ox O2 Delivery O2 Flow Rate FiO2 05/13/16 05:28 76 20 05/13/16 05:25 98.1 108/65 98 Room Air Urine Output: Good General: Alert and Oriented Abdomen: Fundus Firm, Non-tender Laboratory Item Value Date Time Hemoglobin 13.5 GM/DL 05/12/16 0628 Hemoglobin 11.1 GM/DL L # 05/13/16 0415 Assessment SP, Comments shoulder dystocia Plan Routine Care, Continue PNV ROBERT WILLIS MD May 13, 2016 08:37
[2016-05-13] MEDS ORDERED: DOCUSATE CALCIUM 240 MG CAPSULE PO SCH (09:00)
[2016-05-13] MEDS: HYDROCODONE/APAP 5 mg/325 mg TABLET PO PRN (12:24)
[2016-05-13 12:29] VITALS: BP 112/66; PULSE 77; RESP 16; TEMP 98; O2SAT 95
--- NOTE | 2016-05-13 14:35 | NUR ---
CM THIS WORKER MET WITH PT IN ROOM. ALSO PRESENT WAS FOB AND PATERNAL GRANDMOTHER. THIS WORKER INTRODUCED SELF AND ROLE OF CASE MANAGEMENT. PT AND FOB REPORTED THAT THEY HAVE ALL THAT IS NEEDED FOR BABY AT HOME TO INCLUDE CAR SEAT, CRIB, FORMULA, DIAPERS, CLOTHING, AND CHANGING TABLE. MOTHER REPORTED THAT MATERNAL GRANDMOTHER IS ALSO LIVING IN [place] AND HELPS IF NEEDED. PT REPORTED THAT SHE HAD HER BABY HERE BECAUSE SHE HAD STARTED HER HERE. MOTHER, FATHER, AND MATERNAL GRANDMOTHER ALTERNATE DAYCARE AND SO BABY WOULD NOT REQUIRE DAYCARE. THIS WORKER INQUIRED REGARDING OTHER CHILDREN. MOTHER AND FATHER HAVE ONE OTHER CHILD TOGETHER (BOY AGE 3) AND MOTHER HAS ANOTHER CHILD AGE 7 THAT RESIDES WITH FATHER. MOTHER DENIED ANY DCF INVOLVEMENT REGARDING THIS AND THAT SHE HAS CUSTODY AND REGULAR CONTACT. PARENTS PLAN TO USE DR. ARNOLD FOR IT SUPPORT MANAGER AND ARE ABLE TO TRAVEL FOR THESE VISITS. PARENTS REPORT THAT THEY ARE NOT ELIGIBLE FOR [facility] DUE TO EXCEEDING THE INCOME REQUIREMENTS. PT DENIED NEEDS AT THIS TIME. BABY IS PLANNING TO BE ADDED TO THE INSURANCE. NO CONCERNS AT THIS TIME. THIS WORKER PROVIDED CONTACT INFORMATION FOR FAMILY AND ENCOURAGED FAMILY TO CONTACT THIS WORKER WITH ANY NEEDS. UPDATE TO PRIMARY NURSE.
--- NOTE | 2016-05-13 15:04 | NUR ---
SHIFT SUMMARY VSS. FUNDUS FIRM AND LOCHIA SCANT. PAIN CONTROLLED WITH NORCO 5/325MG AND IBUPROFEN 800MG. PROVIDES SELF CARES. IV D/C'D. TOLERATED FLUIDS AND REGULAR DIET.
[2016-05-13 16:28] VITALS: BP 96/63; PULSE 76; RESP 20; TEMP 98.2
[2016-05-13] MEDS ORDERED: IBUP-1547 PO (16:57)
--- NOTE | 2016-05-13 18:45 | NUR ---
DISCHARGE: VSS, pt's pain controlled with PO Motrin and ice sindhu packs. Fundus firm at umbilicus, light lochia noted. Pt up ad eliazar, voiding, performing own personal cares, and tolerating general diet. Pt providing all baby's cares and bottle feeding with Similac formula. Dr Hernanedz rounds on pt, DC orders placed. RN discusses and provides dc instruction and Rx for Motrin. Pt verbalizes understanding to all teaching. Security bands verified. RN escorts pt to private vehicle.
--- NOTE | 2016-05-17 17:16 | NUR ---
FOLLOW UP CALL ATTEMPT
== END 2016-05-13 18:45 | disposition home or self-care (01) | DRG 775 ==
LOC: MC 05:51
PROVIDERS: ADMIT Obstetrics & Gynecology; ATTEND Obstetrics & Gynecology
PROC: 10E0XZZ Delivery of Products of Conception, External Approach (ICD-10-PCS; principal; 2016-05-12)
PROC: 3E033VJ Introduction of Other Hormone into Peripheral Vein, Percutaneous Approach (ICD-10-PCS; 2016-05-12)
PROC: 10907ZC Drainage of Amniotic Fluid, Therapeutic from Products of Conception, Via Natural or Artificial Opening (ICD-10-PCS; 2016-05-12)
DX: O26.893 Other specified pregnancy related conditions, third trimester (principal); O66.0 Obstructed labor due to shoulder dystocia; O76 Abnormality in fetal heart rate and rhythm complicating labor and delivery; O99.344 Other mental disorders complicating childbirth; F31.9 Bipolar disorder, unspecified; Z3A.39 39 weeks gestation of pregnancy; Z37.0 Single live birth
CPT/HCPCS: 36415; 85027